=== PATIENT | female | born 1990 | race American Indian/Alaskan Native ===

== ENCOUNTER 2020-05-03 20:58 | Outpatient (CLI) | payer OTHER ==
[2020-05-03 21:21] VITALS: BP 120/72
--- NOTE | 2020-05-03 23:50 | Ultrasound Report ---
ULTRASOUND OBSTETRIC LIMITED ULTRASOUND BIOPHYSICAL PROFILE INDICATION / CLINICAL INFORMATION: decreased movement. COMPARISON: None available. FINDINGS: BREATHING MOVEMENT = 2 GROSS BODY MOVEMENT = 2 TONE = 2 QUALITATIVE AMNIOTIC FLUID VOLUME = 2 TOTAL BIOPHYSICAL SCORE = 8/8 AMNIOTIC FLUID INDEX (cm) = 11.8 PRESENTATION: Cephalic. HEART RATE (beats per minute): 149 ADDITIONAL FINDINGS: None. IMPRESSION: 1. Biophysical Score = 8/8 2. No acute sonographic abnormality of the pelvis. Signer Name: Kyrie Rondon MD Signed: 05/03/2020 11:45 PM Workstation Name: [email or web address]
== END 2020-05-03 22:32 | disposition home or self-care (01) ==
LOC: TRG 20:58 → APU 21:00 → TRG 22:32
PROVIDERS: ATTEND Obstetrics & Gynecology
DX: O36.8130 Decreased fetal movements, third trimester, not applicable or unspecified (principal); Z3A.37 37 weeks gestation of pregnancy
CPT/HCPCS: 59025; 76815; 76819

== ENCOUNTER 2020-12-20 13:18 | Observation (INO) | payer OTHER ==
[2020-12-20] MEDS ORDERED: LACTATED RINGERS 500 ML IV ONE (15:00)
[2020-12-20] MEDS ORDERED: AMPICILLIN/NS 2 GM/100 ML 2 GM/100 ML BAG IV ONE (15:00)
[2020-12-20] MEDS: FERROUS SULFATE 325 MG TAB PO SCH ×2 (15:32→19:52)
[2020-12-20] MEDS: BETAMET ACET/BETAMET NA PH 6 MG/ML INJ 5 ML MDV IM SCH (15:33)
[2020-12-20] MEDS ORDERED: BETAMET ACET/BETAMET NA PH 6 MG/ML INJ 5 ML MDV IM SCH (16:00)
[2020-12-20] MEDS ORDERED: AMPICILLIN/NS 1 GM/50 ML 1 GM/50 ML BAG IV SCH ×2 (19:00→20:00)
[2020-12-20 19:39] LABS: Hemoglobin 8.3 gm/dl (10.1-14.3); Mean Corpuscular HGB Conc 32 % (30-34); Mean Corpuscular Volume 81 fl (79-97); Platelet Count 231 K/mm3 (140-440); Red Blood Count 3.19 M/mm3 (3.65-5.03); Red Cell Distribution Width 15.9 % (13.2-15.2)
[2020-12-20 19:40] LABS: Basophils % (Auto) 0.3 % (0.0-1.8); Lymphocytes # (Auto) 0.8 K/mm3 (1.2-5.4); Lymphocytes % (Auto) 7.2 % (13.4-35.0); Monocytes # (Auto) 0.4 K/mm3 (0.0-0.8); Monocytes % (Auto) 3.3 % (0.0-7.3)
[2020-12-20] MEDS ORDERED: FERROUS SULFATE 325 MG TAB PO SCH (20:00)
--- NOTE | 2020-12-20 21:44 | Ultrasound Report ---
US OB BPP wo non-stress, US OB limited INDICATION / CLINICAL INFORMATION: WELL BEING. COMPARISON: None available. FINDINGS: Single, viable intrauterine in breech presentation. heart rate 130. Placenta is posterior and free of the cervical os. Cervical length measures 4.6 cm. Amniotic fluid volume is normal, with a fluid index of 11 cm. Femur length measures 5.0 cm, corresponding to a gestational age of 27 weeks 0 days. Biophysical profile breathing movements: 2 movements: 2 posture and tone: 2 Amniotic fluid volume: 2 Total biophysical profile score: 8/8. IMPRESSION: 1. Single, viable 27 week intrauterine . 2. Biophysical profile score of 8/8. Signer Name: Richard Anderson MD Signed: 12/20/2020 9:40 PM Workstation Name: [id number]
--- NOTE | 2020-12-20 22:07 | Consultation ---
Consult Note - Parent Education I met with parent(s) and discussed the following:: Need for NICU admission, Poss ible need for intubation and surfactant or other resp support, Temperature regulation, Head ultrasounds to evaluate IVH, Eye exams for ROP screening, Possible need for IV fluids/TPN and IV antibiotics, Possible need for umbilical lines, Importance of providing breast milk & encouraged pumping aft delivery, Donor breast milk if baby meets criteria after , Slow feeding advancement and monitoring of tolerance. NG/OG feeds, Need to monitor for jaundice, Data for survival & survival without significant co-morbidities Parent(s) demonstrated understanding of all the information:: Yes Assessment and Plan - Assessment Gestation:: 26.4 Estimated Weight: Not listed Baby's gender: Female Baby's name: Not known yet Additional Comment: Ms. Mora is a 30 yo that presented after being seen in the OB clinic for vagnial bleeding. She has a low lying placenta and has been passing blood clots as well as was noted to have contractions while in the clinic today. She is here for observation and to receive betamethasone. 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 - Plan Plan: Agree with steroids Will attend delivery Please call NICU with questions
[2020-12-20] MEDS: DOCUSATE SODIUM 100 MG CAP PO SCH (22:09)
--- NOTE | 2020-12-20 23:33 | History and Physical Report ---
History of Present Illness Date of examination: 12/21/20 Date of admission: 12/20/20 13:18 History of present illness: PT is a 30yo at 26 w 5 days who was seen in the office yesterday with complaint of VB s/p intercourse the night before. PT with low lying placenta. U/S repeated today and placenta is posterior and free from the cervical os. VB has slowed since then, was light yesterday am and no VB since yesterday afternoon around 1600. No pelvic pain or cramping or ctxs but pt was found to be 3 cm dilated/60% on exam by CNM in the office yesterday. U/S showed cervical length 4.6 cm. BPP 88. 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 Quit during preg.) - Obstetrical History Expected Date of Delivery: 03/24/21 Actual Gestation: 26 Week(s) 5 Day(s) : 4 Para: 1 Spontaneous Abortions: 1 Induced : 1 Number of Living Children: 1 Medications and Allergies Allergies Allergy/AdvReac Type Severity Reaction Status Date / Time No Known Allergies Allergy Unverified 05/03/20 21:15 Home Medications Medication Instructions Recorded Confirmed Last Taken Type No Known Home Medications [No 05/14/20 12/20/20 Unknown History Reported Home Medications] Active Meds: Active Medications Betamethasone Acet/Betameth SodPhos (Betamet Acet/Betamet Na Ph 6 Mg/Ml Inj 5 Ml Mdv) 12 mg IM Q24HR [facility] Stop: 12/21/20 15:30 Last Admin: 12/20/20 15:33 Dose: 12 mg Documented by: Docusate Sodium (Docusate Sodium 100 Mg Cap) 100 mg PO BID [facility] Last Admin: 12/20/20 22:09 Dose: 100 mg Documented by: Ferrous Sulfate (Ferrous Sulfate 325 Mg Tab) 325 mg PO TID [facility] Last Admin: 12/20/20 19:52 Dose: 325 mg Documented by: Multivitamins/Iron/Calcium ( [id number] Fumarate-Folic Acid Vit Tab) 1 e ach PO QDAY [facility] Review of Systems All systems: negative (except HPI) - Vital Signs Vital signs: Vital Signs Pulse BP 88 115/59 12/20/20 14:24 12/20/20 14:24 Temp Pulse Resp BP Pulse Ox 98.9 F 101 H 16 112/59 97 12/20/20 19:45 12/20/20 23:26 12/20/20 19:45 12/20/20 22:36 12/20/20 23:26 - Obstetrical FHR: category 1 Uterine Contraction Pattern: Absent Results Result Diagrams: 12/20/20 19:10 Abnormal lab results 12/20/20 Range/Units 19:10 WBC 11.2 H (4.5-11.0) K/mm3 RBC 3.19 L (3.65-5.03) M/mm3 Hgb 8.3 L (10.1-14.3) gm/dl Hct 26.0 L (30.3-42.9) % MCH 26 L (28-32) pg RDW 15.9 H (13.2-15.2) % Lymph % (Auto) 7.2 L (13.4-35.0) % Lymph # (Auto) 0.8 L (1.2-5.4) K/mm3 Seg Neutrophils % 89.2 H (40.0-70.0) % Seg Neutrophils # 10.0 H (1.8-7.7) K/mm3 All other labs normal. Assessment and Plan - Patient Problems (1) Premature cervical dilation in second trimester Current Visit: Yes Status: Acute Plan to address problem: PT does not have a previa and VB has resolved. PT started on Betamethasone yesterday afternoon due to her advanced cervical dilation. No ctxs. As long as pt stays stable with no more significant VB and no regular ctxs, will likely let pt go home after her 2nd steroid dose later today. PT understands and agrees with the plan.
[2020-12-21] MEDS: FERROUS SULFATE 325 MG TAB PO SCH ×3 (08:38→20:47)
[2020-12-21] MEDS: DOCUSATE SODIUM 100 MG CAP PO SCH ×2 (10:34→22:41)
[2020-12-21] MEDS: PRENATAL VIT27-FE FUMARATE-FOLIC ACID VIT TAB PO SCH (10:34)
[2020-12-21] MEDS: BETAMET ACET/BETAMET NA PH 6 MG/ML INJ 5 ML MDV IM SCH (15:51)
[2020-12-22] MEDS: FERROUS SULFATE 325 MG TAB PO SCH ×2 (09:00→14:33)
--- NOTE | 2020-12-22 10:18 | Progress Note ---
Assessment and Plan - Patient Problems (1) Premature cervical dilation in second trimester Current Visit: Yes Status: Acute Plan to address problem: --Patient with episode of vaginal bleeding after intercourse with partner on 12/20/2020. No further significant vaginal bleeding. No evidence of labor at this time. Placenta in posterior without previa. BPP /. S/p steriods x 2 --Plan for discharge home with close follow up within the week in clinic --Strong ER warnings given --Pelvic rest for now Subjective - Subjective Date of service: 12/22/20 Principal diagnosis: vaginal bleeding at 26 weeks, premature cervical dilation Interval history: Patient doing well. No more significant vaginal bleeding since prior to admission. Only occasional spotting. Patient reports normal movement. s/p steriods x 1. No current labor complaints or PIH symptoms. Objective - Vital Signs Vital Signs: Vital Signs - 12hr 12/22/20 12/22/20 12/22/20 09:07 09:08 09:12 Pulse Rate 82 85 89 Blood Pressure 119/69 O2 Sat by Pulse 100 100 Oximetry 12/22/20 12/22/20 12/22/20 09:17 09:22 09:27 Pulse Rate 105 H 86 89 Blood Pressure O2 Sat by Pulse 100 100 100 Oximetry 12/22/20 12/22/20 12/22/20 09:32 09:37 09:48 Pulse Rate 85 97 H 58 L Blood Pressure O2 Sat by Pulse 100 100 87 Oximetry - Exam Cardiovascular: Regular rate Lungs: Clear to auscultation Abdomen: Present: normal appearance, normal bowel sounds, other (gravid) FHR: category 1 Uterine Contraction Monitor Mode: External Cervical Dilatation: 3 Uterine Contraction Pattern: Absent - Labs Labs: Abnormal Labs 12/20/20 19:10 WBC 11.2 H RBC 3.19 L Hgb 8.3 L Hct 26.0 L MCH 26 L RDW 15.9 H Lymph % (Auto) 7.2 L Lymph # (Auto) 0.8 L Seg Neutrophils % 89.2 H Seg Neutrophils # 10.0 H
--- NOTE | 2020-12-22 10:22 | Discharge Summary ---
Providers - Providers Date of Admission: 12/20/20 13:18 Date of discharge: 12/22/20 Attending physician: JA [facility] Primary care physician: CAT SOTO MD Hospitalization Reason for admission: vaginal bleeding, other (premature cervical dilation in the 2nd trimester) Hospital course: Patient was admitted on 12/20/20 for vaginal bleeding after intercourse at 26w4d. Patient with hx of low lying placenta, since resolved on repeat imaging with BPP 07/05. Now posterior placenta. s/p BMZ x 2. No further significant vaginal bleeding during admission and discharged home in good condition with plan for pelvic rest and close clinic follow up within the week. Condition at discharge: Good Disposition: DC-01 TO HOME OR SELFCARE - Discharge Diagnoses (1) Premature cervical dilation in second trimester Status: Acute Plan - Provider Discharge Summary Activity: no sex for 6 weeks, no strenuous exercise Diet: routine Instructions: routine Additional instructions: [] Smoking cessation referral if applicable(refer to patient education folder for contact #) [] Refer to [facility] Booklet Call your doctor immediately for: * Fever > 100.5 * Heavy vaginal bleeding ( >1 pad per hour) * Severe persistent headache * Shortness of breath * Reddened, hot, painful area to leg or breast * Drainage or odor from incision. * Keep incision clean and dry at all times and follow doctor's instructions regarding bathing/showering - Follow up plan Follow up: PRIMARY CARE, [Primary Care Provider] - 3 Days
[2020-12-22] MEDS: DOCUSATE SODIUM 100 MG CAP PO SCH (10:51)
[2020-12-22] MEDS: PRENATAL VIT27-FE FUMARATE-FOLIC ACID VIT TAB PO SCH (10:51)
[2020-12-22 17:33] VITALS: BP 111/58
== END 2020-12-22 18:00 | disposition home or self-care (01) ==
LOC: LD 13:18
PROVIDERS: ADMIT Obstetrics & Gynecology; ATTEND Obstetrics & Gynecology
DX: O34.32 Maternal care for cervical incompetence, second trimester (principal); O99.012 Anemia complicating pregnancy, second trimester; Z87.891 Personal history of nicotine dependence; Z3A.26 26 weeks gestation of pregnancy; Z90.49 Acquired absence of other specified parts of digestive tract
CPT/HCPCS: 36415; 59025; 76815; 76819; 85025; 86850; 86900; 86901; 96365; 96372; G0378; G0379; J0290; J0702; J7120; 96360

== ENCOUNTER 2021-03-16 21:43 | Inpatient (IN) | payer OTHER ==
[2021-03-17] MEDS ORDERED: fentaNYL 100 MCG/2 ML INJ IV PRN (00:07)
[2021-03-17] MEDS ORDERED: ePHEDrine SULFATE 50 MG/1 ML INJ IV PRN (00:07)
[2021-03-17] MEDS ORDERED: MINERAL OIL 30 ML ORAL LIQD PO PRN (00:07)
[2021-03-17] MEDS ORDERED: NalbUPHINE 10 MG/1 ML INJ IV PRN (00:07)
[2021-03-17] MEDS ORDERED: TERBUTALINE 1 MG/1 ML INJ SUB-Q PRN (00:07)
[2021-03-17] MEDS ORDERED: ONDANSETRON 4 MG/2 ML INJ IV PRN ×2 (00:07→13:00)
[2021-03-17] MEDS ORDERED: AMPICILLIN/NS 2 GM/100 ML 2 GM/100 ML BAG IV ONE (00:20)
--- NOTE | 2021-03-17 00:20 | History and Physical Report ---
History of Present Illness Date of examination: 03/17/21 Date of admission: 03/16/21 22:38 30-year-old multipara at 6 cm dilatation is admitted for labor. She does have a history of pelvis and she is going be on Valtrex. Her GBS is positive so she is going to get antibiotics while she is in labor. Past History Past Medical History: no pertinent history Past Surgical History: no surgical history Family/Genetic History: diabetes, heart disease, hypertension (lupus), cancer, other - Obstetrical History : 4 Medications and Allergies Allergies Allergy/AdvReac Type Severity Reaction Status Date / Time No Known Allergies Allergy Unverified 05/03/20 21:15 Home Medications Medication Instructions Recorded Confirmed Last Taken Type One Daily Tablet 1 tab PO DAILY 03/17/21 03/17/21 03/16/21 09:00 History Active Meds: Active Medications Ephedrine Sulfate (Ephedrine Sulfate 50 Mg/1 Ml Inj) 10 mg IV Q2M PRN PRN Reason: Hypotension Fentanyl (Fentanyl 100 Mcg/2 Ml Inj) 100 mcg IV Q2H PRN PRN Reason: Pain,Severe (7-10) LABOR PAIN Oxytocin/Sodium Chloride (Pitocin/Ns 30 Unit/500ml) 30 units in 500 mls @ 2 mls/hr IV TITR LANI; Protocol Lactated Ringer's (Lactated Ringers) 1,000 mls @ 125 mls/hr IV DIRECT LANI Oxytocin/Sodium Chloride (Pitocin/Ns 30 Unit/500ml) 30 units in 500 mls @ 40 mls/hr IV TITR LANI; Protocol Ampicillin Sodium (Ampicillin/Ns 1 Gm/50 Ml) 1 gm in 50 mls @ 100 mls/hr IV Q4H LANI; Protocol Lidocaine (Lidocaine (2%) 20 Mg/1 Ml Vial 20 Ml Mdv) 20 ml INFILTRATI ONCE ONE Stop: 03/17/21 00:08 Mineral Oil (Mineral Oil 30 Ml Oral Liqd) 30 ml PO QHS PRN PRN Reason: Constipation Nalbuphine HCl (Nalbuphine 10 Mg/1 Ml Inj) 10 mg IV Q2H PRN PRN Reason: Pain, Moderate (4-6) Ondansetron HCl (Ondansetron 4 Mg/2 Ml Inj) 4 mg IV Q8H PRN PRN Reason: Nausea And Vomiting Terbutaline Sulfate (Terbutaline 1 Mg/1 Ml Inj) 0.25 mg SUB-Q ONCE PRN PRN Reason: Hyperstimulation/Hypertonicity Valacyclovir HCl (Valacyclovir 500 Mg Tab) 1,000 mg PO TID [facility] Review of Systems All systems: negative - Vital Signs Vital signs: Vital Signs Temp Pulse Resp BP 97.9 F 88 16 110/57 03/16/21 23:14 03/16/21 23:14 03/16/21 23:14 03/16/21 23:14 Temp Pulse Resp BP Pulse Ox 97.9 F 88 16 110/57 03/16/21 23:14 03/16/21 23:14 03/16/21 23:14 03/16/21 23:14 - Physical Exam Breasts: Cardiovascular: Regular rate, Normal S1, Normal S2 Abdomen: Positive: normal appearance, soft, normal bowel sounds. Negative: distention, tenderness Genitourinary (Female): Positive: normal external genitalia Vulva: both: normal Vagina: Positive: normal moisture. Negative: discharge Cervix: Negative: lesion, discharge Uterus: Positive: enlarged Adnexa: both: normal Anus/Rectum: Positive: normal perianal skin, heme negative. Negative: rectal mass, hemorrhoids Extremities: Deep Tendon Reflex Grade: Normal +2 - Obstetrical FHR: category 1 Uterine Contraction Monitor Mode: External Cervical Dilatation: 6 Cervical Effacement Percentage: 80 station: -4 Uterine Contraction Frequency (min): 3mins Uterine Contraction Duration: 60 secs Uterine Contraction Pattern: Irregular Results All other labs normal. Assessment and Plan Near-term plan start Pitocin in the morning for delivery. Also treat the patient with antibiotics for group B strep positive and she is going to receive Valtrex while she is in labor. - Patient Problems (1) GBS (group B streptococcus) UTI complicating Current Visit: No Status: Acute
[2021-03-17 00:32] LABS: Hematocrit 25.1 % (30.3-42.9); Hemoglobin 7.7 gm/dl (10.1-14.3); Mean Corpuscular HGB Conc 31 % (30-34); Mean Corpuscular Volume 73 fl (79-97); Platelet Count 236 K/mm3 (140-440); Red Blood Count 3.43 M/mm3 (3.65-5.03)
[2021-03-17 00:34] LABS: Red Cell Distribution Width 20.6 % (13.2-15.2)
[2021-03-17] MEDS: LACTATED RINGERS 1,000 ML IV SCH ×2 (00:41→10:03)
[2021-03-17] MEDS ORDERED: valACYclovir 500 MG TAB PO SCH ×2 (00:55→08:00)
[2021-03-17] MEDS ORDERED: LIDOCAINE (2%) 20 MG/1 ML VIAL 20 ML MDV INFILTRATI ONE ×2 (00:57→11:40)
[2021-03-17] MEDS ORDERED: OXYTOCIN DRIP 30 UNITS/500 ML BAG IV SCH ×2 (01:00)
[2021-03-17] MEDS ORDERED: valACYclovir 500 MG TAB PO ONE (02:00)
[2021-03-17] MEDS: AMPICILLIN/NS 1 GM/50 ML 1 GM/50 ML BAG IV SCH ×2 (04:43→09:15)
[2021-03-17] MEDS: valACYclovir 500 MG TAB PO SCH ×2 (08:34→20:09)
--- NOTE | 2021-03-17 10:50 | Progress Note ---
Assessment and Plan A: IUP@ 39 wks + GBS p: Continue monitoring and abt Anticipate Subjective - Subjective Date of service: 03/17/21 Principal diagnosis: IUP@39 wks Patient reports: movement normal Objective - Vital Signs Vital Signs: Vital Signs - 12hr 03/16/21 03/17/21 03/17/21 23:14 02:17 03:19 Temperature 97.9 F 98.0 F Pulse Rate 88 85 106 H Respiratory 16 Rate Blood Pressure 110/57 107/55 Blood Pressure 110/57 [Right] O2 Sat by Pulse 98 Oximetry 03/17/21 03/17/21 03/17/21 03:24 03:29 03:34 Temperature Pulse Rate 99 H 107 H 103 H Respiratory Rate Blood Pressure Blood Pressure [Right] O2 Sat by Pulse 98 98 98 Oximetry 03/17/21 03/17/21 03/17/21 03:39 03:44 03:49 Temperature Pulse Rate 103 H 99 H 100 H Respiratory Rate Blood Pressure Blood Pressure [Right] O2 Sat by Pulse 98 98 98 Oximetry 03/17/21 03/17/21 03/17/21 03:54 03:59 04:04 Temperature Pulse Rate 109 H 94 H 92 H Respiratory Rate Blood Pressure Blood Pressure [Right] O2 Sat by Pulse 98 98 98 Oximetry 03/17/21 03/17/21 03/17/21 04:09 04:14 04:19 Temperature Pulse Rate 99 H 94 H 92 H Respiratory Rate Blood Pressure Blood Pressure [Right] O2 Sat by Pulse 98 98 99 Oximetry 03/17/21 03/17/21 03/17/21 04:24 04:29 04:34 Temperature Pulse Rate 89 97 H 99 H Respiratory Rate Blood Pressure Blood Pressure [Right] O2 Sat by Pulse 98 98 98 Oximetry 03/17/21 03/17/21 03/17/21 04:39 04:44 04:46 Temperature Pulse Rate 94 H 97 H 92 H Respiratory Rate Blood Pressure 108/52 Blood Pressure [Right] O2 Sat by Pulse 98 98 Oximetry 03/17/21 03/17/21 03/17/21 04:49 04:50 04:54 Temperature 97.9 F Pulse Rate 90 91 H Respiratory 16 Rate Blood Pressure Blood Pressure [Right] O2 Sat by Pulse 99 99 Oximetry 03/17/21 03/17/21 03/17/21 04:59 05:04 05:09 Temperature Pulse Rate 88 104 H 103 H Respiratory Rate Blood Pressure Blood Pressure [Right] O2 Sat by Pulse 98 99 99 Oximetry 03/17/21 03/17/21 03/17/21 05:14 05:19 05:29 Temperature Pulse Rate 100 H 104 H 74 Respiratory Rate Blood Pressure Blood Pressure [Right] O2 Sat by Pulse 99 100 100 Oximetry 03/17/21 03/17/21 03/17/21 05:34 05:39 05:44 Temperature Pulse Rate 92 H 84 80 Respiratory Rate Blood Pressure Blood Pressure [Right] O2 Sat by Pulse 99 98 99 Oximetry 03/17/21 03/17/21 03/17/21 05:49 05:54 05:59 Temperature Pulse Rate 81 82 84 Respiratory Rate Blood Pressure Blood Pressure [Right] O2 Sat by Pulse 99 99 98 Oximetry 03/17/21 03/17/21 03/17/21 06:04 06:09 06:14 Temperature Pulse Rate 85 87 82 Respiratory Rate Blood Pressure Blood Pressure [Right] O2 Sat by Pulse 98 98 98 Oximetry 03/17/21 03/17/21 03/17/21 06:19 06:24 06:29 Temperature Pulse Rate 90 86 82 Respiratory Rate Blood Pressure Blood Pressure [Right] O2 Sat by Pulse 98 99 98 Oximetry 03/17/21 03/17/21 03/17/21 06:34 06:39 06:44 Temperature Pulse Rate 74 91 H 84 Respiratory Rate Blood Pressure Blood Pressure [Right] O2 Sat by Pulse 98 98 99 Oximetry 03/17/21 03/17/21 03/17/21 06:49 06:54 06:59 Temperature Pulse Rate 82 86 89 Respiratory Rate Blood Pressure Blood Pressure [Right] O2 Sat by Pulse 98 99 99 Oximetry 03/17/21 03/17/21 03/17/21 07:04 07:09 07:14 Temperature Pulse Rate 83 84 74 Respiratory Rate Blood Pressure Blood Pressure [Right] O2 Sat by Pulse 100 100 100 Oximetry 03/17/21 03/17/21 03/17/21 07:19 07:24 07:29 Temperature Pulse Rate 85 71 87 Respiratory Rate Blood Pressure Blood Pressure [Right] O2 Sat by Pulse 100 100 100 Oximetry 03/17/21 03/17/21 03/17/21 07:34 07:39 07:44 Temperature Pulse Rate 93 H 79 86 Respiratory Rate Blood Pressure Blood Pressure [Right] O2 Sat by Pulse 100 100 100 Oximetry 03/17/21 03/17/21 03/17/21 07:49 07:54 07:59 Temperature Pulse Rate 86 84 81 Respiratory Rate Blood Pressure Blood Pressure [Right] O2 Sat by Pulse 100 100 100 Oximetry 03/17/21 03/17/21 03/17/21 08:04 08:09 08:14 Temperature Pulse Rate 81 84 84 Respiratory Rate Blood Pressure Blood Pressure [Right] O2 Sat by Pulse 100 100 100 Oximetry 03/17/21 08:33 Temperature Pulse Rate 82 Respiratory Rate Blood Pressure 111/65 Blood Pressure [Right] O2 Sat by Pulse Oximetry - Exam Breasts: normal Abdomen: Present: normal appearance, soft, normal bowel sounds Vulva: both: normal Uterus: Present: normal FHR: auscultation normal, category 1 Uterine Contraction Monitor Mode: External Cervical Dilatation: 7 Cervical Effacement Percentage: 80 station: -1 Uterine Contraction Pattern: Irregular Uterine Tone Measurement Phase: Resting Uterine Contraction Intensity: Mild Extremities: normal - Labs Labs: Abnormal Labs 03/16/21 23:40 WBC 12.9 H RBC 3.43 L Hgb 7.7 L Hct 25.1 L MCV 73 L MCH 22 L RDW 20.6 H Laboratory Results - last 24 hr 03/16/21 03/16/21 23:40 23:40 WBC 12.9 H RBC 3.43 L Hgb 7.7 L Hct 25.1 L MCV 73 L MCH 22 L MCHC 31 RDW 20.6 H Plt Count 236 Blood Type O POSITIVE Antibody Screen Negative
--- NOTE | 2021-03-17 12:39 | Procedure Note ---
OB Delivery Note - Delivery Date of Delivery: 03/17/21 Surgeon: MARTHA ADAMS Estimated blood loss: other (450cc) - Vaginal Delivery presentation: vertex Delivery position: OA Intrapartum events: none Delivery induction: none Delivery augmentation: rupture of membranes, pitocin Delivery monitor: external FHT, external uterine Route of delivery: Delivery placenta: spontaneous Delivery cord: 3 umbilical vessels Episiotomy: none Delivery laceration: none Anesthesia: none Delivery comments: Called to for delivery. SVE 10/100%/0. of a viable female in OA position over intact perineum. Spontaneous delivery of head and shoulders. was placed on mom's chest for skin to skin bonding. Delayed cord clamping while NICU nurse dried and stimulated baby. Cord was double clamped and FOB was allowed to cut the cord. was taken to radiant warmer for an initial assess. 8/9. Cord blood was taken. Spontaneous delivery of an intact placenta with 3CV. FF@ U2 with IV pitocin and fundal massage. EBL 450cc; FW 2610 Gms. Mom and baby was left in stable condition with L&D nurse. - A at 1 minute: 8 at 5 minutes: 9 Gender: Female (FW [id number])
[2021-03-17] MEDS ORDERED: LANOLIN/ZINC/DIMETHICONE (LANSINOH) 7 GM TP PRN (13:00)
[2021-03-17] MEDS ORDERED: PROMETHAZINE 25 MG TAB PO PRN (13:00)
[2021-03-17] MEDS ORDERED: diphenhydrAMINE 25 MG CAP PO PRN (13:00)
[2021-03-17] MEDS ORDERED: PROMETHAZINE 25 MG RECT SUPP PR PRN (13:00)
[2021-03-17] MEDS ORDERED: WITCH HAZEL/ GLYCERIN PAD TP PRN (13:00)
[2021-03-17] MEDS ORDERED: HYDROCORTISONE 2.5% RECT CREAM 28.35 GM PR PRN (16:14)
[2021-03-17] MEDS: IBUPROFEN 600 MG TAB PO SCH ×2 (17:28→21:30)
[2021-03-17] MEDS ORDERED: oxyCODONE /ACETAMINOPHEN 5-325MG TAB PO ONE (20:27)
[2021-03-17] MEDS ORDERED: MAGNESIUM HYDROXIDE (MOM) ORAL LIQD UDC PO PRN (22:00)
[2021-03-18] MEDS: IBUPROFEN 600 MG TAB PO SCH ×4 (00:36→22:29)
[2021-03-18 01:27] LABS: Hematocrit 21.1 % (30.3-42.9); Hemoglobin 6.4 gm/dl (10.1-14.3)
--- NOTE | 2021-03-18 03:30 | Event Note ---
Date: 03/18/21 Called for critical lab value for Hgb. AP Hb 7.7 -> PPD1 6.4. Currently asymptomatic. Vitals wnl. Will CBC in PM and reassess.
[2021-03-18] MEDS: valACYclovir 500 MG TAB PO SCH ×3 (09:03→22:27)
[2021-03-18] MEDS ORDERED: PRENATAL VIT27-FE FUMARATE-FOLIC ACID VIT TAB PO SCH (10:00)
[2021-03-18 11:34] LABS: Basophils # (Auto) 0.1 K/mm3 (0.0-0.1); Basophils % (Auto) 0.8 % (0.0-1.8); Eosinophils # (Auto) 0.1 K/mm3 (0.0-0.4); Eosinophils % (Auto) 0.7 % (0.0-4.3); Hematocrit 22.9 % (30.3-42.9); Lymphocytes # (Auto) 2.4 K/mm3 (1.2-5.4); Lymphocytes % (Auto) 19.7 % (13.4-35.0); Mean Corpuscular HGB Conc 31 % (30-34); Mean Corpuscular Volume 74 fl (79-97); Monocytes % (Auto) 8.5 % (0.0-7.3); Platelet Count 234 K/mm3 (140-440); Red Blood Count 3.09 M/mm3 (3.65-5.03)
[2021-03-18 11:49] LABS: Red Cell Distribution Width 20.4 % (13.2-15.2)
[2021-03-18] MEDS ORDERED: IRON DEXTRAN COMPLEX 100 MG/2 ML INJ IM ONE (12:55)
--- NOTE | 2021-03-18 12:59 | Progress Note ---
Assessment and Plan A: PP Day #1 Severe Asymptomatic Anemia +Covid (Asymptomatic) P: Follow Routine Orders Infed 100mg IM x 1 dose Ferrous Sulfate 325mg PO TID; Continue at home Isolation/Covid Precautions D/C in the AM RTO in 6 Weeks Subjective - Subjective Date of service: 03/18/21 Principal diagnosis: IUP@39 wks Patient reports: appetite normal, voiding normally, pain well controlled, flatus, ambulating normally, other (Denies Dizziness, Fatigue, light-headness, and HAs) : doing well, bottle feeding Objective - Vital Signs Latest vital signs: Vital Signs Temp Pulse Resp BP BP Pulse Ox 03/18/21 09:39 98.4 F 85 18 102/54 99 03/18/21 07:13 18 03/18/21 06:20 18 03/18/21 01:36 18 03/18/21 00:36 18 03/18/21 00:00 98.6 F 74 18 114/78 03/17/21 21:31 18 03/17/21 20:43 18 03/17/21 20:39 98.0 F 81 18 119/78 100 03/17/21 15:55 98.4 F 85 18 113/71 100 03/17/21 15:11 93 H 110/68 03/17/21 14:56 78 117/63 03/17/21 14:41 81 116/72 03/17/21 14:26 77 116/71 03/17/21 14:11 70 123/74 03/17/21 13:56 73 123/75 03/17/21 13:41 70 133/80 03/17/21 13:26 77 129/71 03/17/21 13:12 74 132/65 Intake and Output 03/17/21 03/18/21 03/18/21 22:59 06:59 14:59 Intake Total 300 200 320 Balance 300 200 320 Intake: Oral 200 320 Intake, Free Water 300 Other: Total, Intake Amount 200 320 Voiding Method Toilet # Voids Void 1 1 1 - Exam Breasts: Present: normal Cardiovascular: Present: Regular rate Lungs: Present: Clear to auscultation, Normal air movement Abdomen: Present: normal appearance, soft, normal bowel sounds Uterus: Present: normal, firm, fundal height below umbilicus Extremities: Present: normal - Labs Labs: Abnormal lab results 03/17/21 03/18/21 03/18/21 Range/Units 09:15 01:09 10:52 WBC 12.1 H (4.5-11.0) K/mm3 RBC 3.09 L (3.65-5.03) M/mm3 Hgb 6.4 L 7.0 L (10.1-14.3) gm/dl Hct 21.1 L 22.9 L (30.3-42.9) % MCV 74 L (79-97) fl MCH 23 L (28-32) pg RDW 20.4 H (13.2-15.2) % [place] % (Auto) 8.5 H (0.0-7.3) % [place] # (Auto) 1.0 H (0.0-0.8) K/mm3 Seg Neutrophils % 70.3 H (40.0-70.0) % Seg Neutrophils # 8.5 H (1.8-7.7) K/mm3 Coronavirus (PCR) Positive A (Negative)
--- NOTE | 2021-03-18 13:00 | Discharge Summary ---
Providers - Providers Date of Admission: 03/16/21 22:38 Date of discharge: 03/19/21 Attending physician: NORM MATOS MD Primary care physician: NORM MATOS MD Hospitalization Reason for admission: other (advanced cervical dilation) Delivery: Episiotomy: none Laceration: none Other procedures: none complications: none Discharge diagnosis: IUP at term delivered [place] baby: female Condition at discharge: Good Disposition: DC-01 TO HOME OR SELFCARE Plan - Provider Discharge Summary Activity: routine, no sex for 6 weeks, no heavy lifting 4 weeks, no strenuous exercise Diet: routine Instructions: routine Additional instructions: [] Smoking cessation referral if applicable(refer to patient education folder for contact #) [] Refer to [facility] Booklet Call your doctor immediately for: * Fever > 100.5 * Heavy vaginal bleeding ( >1 pad per hour) * Severe persistent headache * Shortness of breath * Reddened, hot, painful area to leg or breast * Drainage or odor from incision. * Keep incision clean and dry at all times and follow doctor's instructions regarding bathing/showering - Follow up plan Follow up: NORM MATOS MD [Primary Care Provider] - 6 Weeks
[2021-03-18] MEDS: FERROUS SULFATE 325 MG TAB PO SCH ×2 (14:40→22:27)
[2021-03-18 17:20] VITALS: BP 112/73
== END 2021-03-18 23:55 | disposition home or self-care (01) | DRG 774 ==
LOC: TRG 21:43 → LD 22:35 → TRG 22:37 → LD 22:38 → OB 03-17 15:55
PROC: 10E0XZZ Delivery of Products of Conception, External Approach (ICD-10-PCS; principal; 2021-03-17)
DX: O99.02 Anemia complicating childbirth (principal); O98.52 Other viral diseases complicating childbirth; D64.9 Anemia, unspecified; U07.1 COVID-19; O99.824 Streptococcus B carrier state complicating childbirth; Z3A.39 39 weeks gestation of pregnancy; Z37.0 Single live birth; Z83.3 Family history of diabetes mellitus; Z82.49 Family history of ischemic heart disease and other diseases of the circulatory system; Z80.9 Family history of malignant neoplasm, unspecified; Z3A.37 37 weeks gestation of pregnancy
CPT/HCPCS: 36415; 85014; 85018; 85025; 85027; 86850; 86900; 86901; G0378; J0290; J2590; J3010; J7120; U0003

== ENCOUNTER 2022-01-25 10:39 | Day surgery (SDC) | payer OTHER ==
[~2022-01-25 10:39] MED LIST: ACETAMINOPHEN 500 MG TAB PO SCH; LACTATED RINGERS 1,000 ML IV SCH; MIDAZOLAM 2 MG/2 ML INJ IV NR; SCOPOLAMINE TRANSDERMAL PATCH 72 HR TD NR; SODIUM CHLORIDE 0.9% IRR 1,500 ML BOTTLE IR ONE
[2022-01-25] MEDS ORDERED: METHYLERGONOVINE MALEATE 0.2 MG/ML VIAL IM ONE ×2 (10:58→12:18)
[2022-01-25] MEDS ORDERED: SILVER NITRATE APPLICATOR 1 EA TP ONE (10:58)
--- NOTE | 2022-01-25 11:47 | Anesthesia Consultation ---
Anesthesia Consult and Med Hx Date of service: 01/25/22 - Airway Anesthetic Teeth Evaluation: Good ROM Head & Neck: Adequate Mental/Hyoid Distance: Adequate Mallampati Class: Class III Intubation Access Assessment: Possibly Difficult - Pre-Operative Health Status ASA Pre-Surgery Classification: ASA2 Proposed Anesthetic Plan: General - Pulmonary Hx Smoking: Yes (2-3 black and milds per day) Hx Respiratory Symptoms: No - Cardiovascular System Hx Hypertension: Yes (no treatment currently; followed by PCP) - Central Nervous System CVA: No - Endocrine Hx Renal Disease: No Hx Liver Disease: No Hx Insulin Dependent Diabetes: No Hx Non-Insulin Dependent Diabetes: No Hx Thyroid Disease: No - Hematic Hx Anemia: No (note recent heavy bleeding, CBC pending) - Other Systems Hx Obesity: No - Additional Comments Anesthesia Medical History Comments: No hx anesthetic complications.
[2022-01-25] MEDS ORDERED: HYDROmorphone 1 MG/1 ML INJ IV PRN (11:48)
[2022-01-25] MEDS ORDERED: ONDANSETRON 4 MG/2 ML INJ IV PRN (11:48)
[2022-01-25] MEDS ORDERED: HYDROcodone/ACETAMINOPHEN 5-325 MG TAB PO PRN (11:48)
--- NOTE | 2022-01-25 11:48 | Anesthesia Day of Surgery ---
Anesthesia Day of Surgery - Day of Surgery Patient Examined: Yes Patient H&P Reviewed: Yes Patient is NPO: Yes
[2022-01-25] MEDS ORDERED: LIDOCAINE MPF (2%) 20 MG/1 ML VIAL 5 ML ONE (11:51)
[2022-01-25] MEDS ORDERED: fentaNYL 100 MCG/2 ML INJ ONE (11:51)
[2022-01-25] MEDS ORDERED: propofoL 200 MG/20 ML VIAL IV ONE (11:52)
[2022-01-25] MEDS ORDERED: ceFAZolin/STERILE WATER 2 GM/20 ML SYRINGE IV NR (12:00)
[2022-01-25 12:05] LABS: Hematocrit 27.3 % (30.3-42.9); Hemoglobin 8.9 gm/dl (10.1-14.3); Mean Corpuscular HGB Conc 33 % (30-34); Mean Corpuscular Volume 77 fl (79-97); Platelet Count 170 K/mm3 (140-440); Red Blood Count 3.56 M/mm3 (3.65-5.03); Red Cell Distribution Width 16.8 % (13.2-15.2)
[2022-01-25] MEDS ORDERED: SODIUM CHLORIDE 0.9% IRR 1,500 ML BOTTLE IR ONE (12:18)
[2022-01-25] MEDS ORDERED: ONDANSETRON 4 MG/2 ML INJ ONE (12:34)
[2022-01-25] MEDS ORDERED: dexAMETHasone 20 MG/5 ML VIAL ONE (12:34)
--- NOTE | 2022-01-25 13:52 | Post Anesthesia Evaluation ---
- Post Anesthesia Evaluation Patient Participated: Yes Airway Patent: Yes Stable Respiratory Function: Yes Nausea/Vomiting: No Temp > 96.8F: Yes Pain Manageable: Yes Adequeate Hydration: Yes Anesthesia Complications: No
[2022-01-25 19:35] VITALS: BP 115/74
--- NOTE | 2022-01-29 09:12 | Operative Report ---
Operative Report Operative Report: Operation performed: 1. Examined under anesthesia 2. Dilation & curettage Surgeon: Dr. Neetu Ramos Anesthesia: GETA EBL: 200 mL UOP: Adequate and clear IVF: 1 L crystalloid Pathology specimens: Uterine contents Complications: none Disposition and condition: To the PACU in stable condition then discharged home Findings: 1. 10 week size mobile uterus 2. Moderate amount of products of conception Statement of medical necessity: status post medical termination of presenting with persistent vaginal bleeding for dilation curettage for retained products of conception, primarily the placenta. She desired surgical management. The procedure risk benefits, indications and alternatives reviewed patient. Description of operation: After informed consent, the patient was taken to the OR and placed in Sebastián stirrups after general anesthesia was administered. An exam under anesthesia was performed with the findings noted above. The vagina was prepped and draped in the usual sterile fashion. Catheterization of the bladder was performed with 200 mL adequate and clear urine obtained. A duckbill speculum was placed to visualize the cervix. A single-tooth tenaculum was placed onto the anterior cervical lip. Serial dilation of the cervix with Umanzor dilators was performed. The uterus was gently sounded to 10 centimeters. Suction was calibrated to 60 mmHg, and a 10 millimeter curette was gently advanced into the uterine cavity fundus. Suction was applied, and the curette was rotated to evacuate the uterus of products of conception. A sharp curettage was performed until a gritty texture was noted. Suction curettage was repeated to clear the remaining products of conception. Minimal bleeding was noted. The tenaculum was removed from the cervix with good hemostasis noted. The speculum was removed. Patient tolerated the procedure well and was taken to recovery room in good condition. Patient's family was noted of her stable condition at the completion of the procedure. There were no complications. Baljit Ramos MD
== END 2022-01-25 10:40 | disposition home or self-care (01) ==
LOC: OR 10:39
PROVIDERS: ATTEND Obstetrics & Gynecology
DX: O02.89 Other abnormal products of conception (principal); D64.9 Anemia, unspecified; I10 Essential (primary) hypertension; F17.210 Nicotine dependence, cigarettes, uncomplicated; Z72.89 Other problems related to lifestyle; Z79.899 Other long term (current) drug therapy; Z98.890 Other specified postprocedural states; Z82.49 Family history of ischemic heart disease and other diseases of the circulatory system
CPT/HCPCS: 36415; 59812; 85027; 88305; J0690; J1100; J2210; J2250; J2405; J2704; J3010; J3490; J7120